=== PATIENT | male | born 1955 | race Caucasian/White ===

== ENCOUNTER 2020-11-08 08:24 | Emergency (ER) | payer MEDICARE, OTHER ==
[~2020-11-08] VITALS: Ht 182.9 cm; Wt 78.0 kg
[2020-11-08 08:27] VITALS: BP 151/74
[2020-11-08] MEDS ORDERED: IBUPROFEN 600MG TABLET PO STA (08:31)
== END 2020-11-08 10:18 | disposition home or self-care (01) ==
LOC: ER 08:24
DX: S86.012A Strain of left Achilles tendon, initial encounter (principal); Y93.01 Activity, walking, marching and hiking; Y93.89 Activity, other specified; Y92.89 Other specified places as the place of occurrence of the external cause
CPT/HCPCS: 73610; 99283